=== PATIENT | female | born 1990 | race Caucasian/White ===

== ENCOUNTER 2022-10-31 21:07 | Observation (INO) | payer BC ==
[~2022-10-31] VITALS: Ht 165.1 cm; Wt 113.4 kg
[2022-10-31] MEDS ORDERED: PRETAB PO (21:44)
[2022-10-31 21:45] VITALS: BP 118/66
== END 2022-10-31 23:25 | disposition left against medical advice (07) ==
LOC: MLD 21:07
PROVIDERS: ADMIT Obstetrics & Gynecology; ATTEND Obstetrics & Gynecology
DX: O48.0 Post-term pregnancy (principal); Z3A.41 41 weeks gestation of pregnancy
CPT/HCPCS: 76819; G0378; Q0092